=== PATIENT | female | born 1990 | race Hispanic/Latino ===

== ENCOUNTER → 2020-07-23 | Day surgery (SDC) | payer BC ==
[~2020-07-23] MED LIST: BUSPIRONE HCL5 MG PO; DEXMEDETOMIDINE HCL 2 ML ONE; FERROUS SULFAT324 MG PO; HYDROXYCHLOROQ200 MG PO; LEVOTHYROXINE75 MCG PO; LEXAPRO20 MG PO; LIDOCAINE HCL 2% LOCAL INJ 5 ML SDV VIAL INJ ONE; METFORMIN HCL500 MG PO; MIDAZOLAM HCL 2 MG/2 ML VIAL ONE; MYCOPHENOLATE250 MG PO; PANTOPRAZOLE 40 MG 10ML VIAL ONE; PROPOFOL IV EMULSION 10 MG/ML 20 ML VIAL ONE; PROVENTIL HFA6.7 GM INH; VITAMIN D3 COM1 EACH PO; WELLBUTRIN SR150 MG PO
[2020-07-23 09:26] VITALS: BP 112/64
== END | disposition home or self-care (01) ==
LOC: OR 09:30
PROVIDERS: ATTEND Internal Medicine Gastroenterology
DX: K20.90 Esophagitis, unspecified without bleeding (principal); K31.7 Polyp of stomach and duodenum; K29.70 Gastritis, unspecified, without bleeding; G47.33 Obstructive sleep apnea (adult) (pediatric); J84.10 Pulmonary fibrosis, unspecified; M34.9 Systemic sclerosis, unspecified; I73.00 Raynaud's syndrome without gangrene; E11.9 Type 2 diabetes mellitus without complications; F41.9 Anxiety disorder, unspecified; Z01.810 Encounter for preprocedural cardiovascular examination; Z01.812 Encounter for preprocedural laboratory examination; Z20.822 Contact with and (suspected) exposure to COVID-19; Z79.84 Long term (current) use of oral hypoglycemic drugs
CPT/HCPCS: 43239; 43450; 81025; 93005; C9113; J2001; J2704; U0002; J2250

== ENCOUNTER → 2020-09-19 | Outpatient (CLI) | payer BC ==
[~2020-09-19] MED LIST changes: -DEXMEDETOMIDINE HCL 2 ML ONE; -LIDOCAINE HCL 2% LOCAL INJ 5 ML SDV VIAL INJ ONE; -MIDAZOLAM HCL 2 MG/2 ML VIAL ONE; -PANTOPRAZOLE 40 MG 10ML VIAL ONE; -PROPOFOL IV EMULSION 10 MG/ML 20 ML VIAL ONE
== END ==
LOC: US 12:41
PROVIDERS: ATTEND Internal Medicine Gastroenterology
DX: R10.11 Right upper quadrant pain (principal)
CPT/HCPCS: 76705; 78226; 81025; A9537